=== PATIENT | male | born 1995 | race Caucasian/White ===

== ENCOUNTER 2017-07-23 14:46 | Emergency (ER) | payer MEDICAID ==
[~2017-07-23] VITALS: Ht 175.3 cm; Wt 100.0 kg
[2017-07-23] MEDS ORDERED: IBUPROFEN 600MG TABLET PO ONE (16:30)
[2017-07-23 16:34] VITALS: BP 145/82
== END 2017-07-23 16:37 | disposition home or self-care (01) ==
LOC: ER 15:03
DX: S30.0XXA Contusion of lower back and pelvis, initial encounter (principal); V29.88XA Motorcycle rider (driver) (passenger) injured in other specified transport accidents, initial encounter; Y93.89 Activity, other specified; Y99.8 Other external cause status; Y92.410 Unspecified street and highway as the place of occurrence of the external cause
CPT/HCPCS: 99283